=== PATIENT | female | born 1955 | race Caucasian/White ===

== ENCOUNTER 2016-11-22 18:38 | Emergency (ER) | payer BC ==
[2016-11-22 19:57] VITALS: BP 149/78
--- NOTE | 2016-11-22 20:42 | UC ---
Throat Pain/Nasal Tien HPI - HPI Summary HPI Summary: nasal drainage, sore throat no fever for 5 days..."gets this twice a year" - History of Current Complaint Chief Complaint: UCRespiratory Stated Complaint: SINUSES,NAUSEA Time Seen by Provider: 11/22/16 20:12 Hx Obtained From: Patient Hx Last Menstrual Period: 1978 ?: No Onset/Duration: Sudden Onset, Lasting Days - 5, Still Present Severity: Mild Pain Intensity: 3 Pain Scale Used: 0-10 Numeric Cough: None Associated Signs & Symptoms: Positive: Negative Related History: Seasonal Allergies - Allergies/Home Medications Allergies/Adverse Reactions: Allergies Allergy/AdvReac Type Severity Reaction Status Date / Time Amoxicillin [From Augmentin] Allergy Unknown pt does Verified 11/22/16 19:49 not know reaction Clavulanic Acid Allergy Unknown pt does Verified 11/22/16 19:49 [From Augmentin] not know reaction Prednisone AdvReac Insomnia Verified 11/22/16 19:49 PMH/Surg Hx/FS Hx/Imm Hx Previously Healthy: No Endocrine History Of: Denies: Diabetes, Thyroid Disease, Hyperthyroidism, Hypothyroidism, Dyslipidemia Cardiovascular History Of: Reports: Hypertension Denies: Cardiac Disorders, Pacemaker/ICD, Myocardial Infarction, Congestive Heart Failure, Atrial Fibrillation, Deep Vein Thrombosis, Bleeding Disorders Respiratory History Of: Denies: COPD, Asthma, Bronchitis, Pneumonia, Pulmonary Embolism GI/ History Of: Denies: Gastroesophageal Reflux, Ulcer, Gastrointestinal Bleed, Gall Bladder Disease, Kidney Stones, Diverticulitis, Renal Disease, Urosepsis Neurological History Of: Denies: TIA, CVA, Dementia, Seizures, Migraine Psychological History Of: Denies: Anxiety, Depression, Bipolar Disorder, Schizophrenia, Post Traumatic Stress Disorder Cancer History Of: Denies: Lung Cancer, Colorectal Cancer, Breast Cancer, Prostate Cancer Other History Of: Negative For: HIV, Hepatitis B, Hepatitis C, Anticoagulant Therapy - Surgical History Surgical History: Yes Surgery Procedure, Year, and Place: abd surgery over past 1-2 years. hysterectomy 1978. Chronic sciatica - Family History Known Family History: Positive: Cardiac Disease, Hypertension, Diabetes - Social History Occupation: Retired Lives: With Family Alcohol Use: None Substance Use Type: None Smoking Status (MU): Never Smoked Tobacco - Immunization History Most Recent Influenza Vaccination: NONE Most Recent Tetanus Shot: UTD Most Recent Pneumonia Vaccination: NONE Review of Systems Constitutional: Negative Skin: Negative Eyes: Negative ENT: Sore Throat, Nasal Discharge Respiratory: Negative Cardiovascular: Negative Gastrointestinal: Negative Genitourinary: Negative Motor: Negative Neurovascular: Negative Musculoskeletal: Negative Neurological: Negative Psychological: Negative All Other Systems Reviewed And Are Negative: Yes Physical Exam Triage Information Reviewed: Yes Appearance: Well-Appearing, No Pain Distress, Obese Vital Signs: Initial Vital Signs Temp 98 F 11/22/16 19:50 Pulse 96 11/22/16 19:50 Resp 18 11/22/16 19:50 BP 149/78 11/22/16 19:50 Pulse Ox 95 11/22/16 19:50 Vital Signs Reviewed: Yes Eye Exam: Normal Eyes: Positive: Conjunctiva Clear ENT Exam: Normal ENT: Positive: Normal ENT inspection, Hearing grossly normal, Pharynx normal, Nasal congestion, Nasal drainage, TMs normal. Negative: Tonsillar swelling, Tonsillar exudate, Trismus, Muffled/hoarse voice Dental Exam: Normal Neck exam: Normal Neck: Positive: Supple, Nontender, No Lymphadenopathy Respiratory Exam: Normal Respiratory: Positive: Chest non-tender, Lungs clear, Normal breath sounds, No respiratory distress, No accessory muscle use Cardiovascular Exam: Normal Cardiovascular: Positive: RRR, No Murmur, Pulses Normal, Brisk Capillary Refill Musculoskeletal Exam: Normal Musculoskeletal: Positive: Strength Intact, ROM Intact, No Edema Neurological Exam: Normal Neurological: Positive: Alert, Muscle Tone Normal Psychological Exam: Normal Skin Exam: Normal Throat Pain/Nasal Course/Dx - Course Assessment/Plan: Flonase, mucinex, increase fluids shold sx not resolve or worsen in the next 5 days may start antibiodic - Differential Dx/Diagnosis Differential Diagnosis/HQI/PQRI: Influenza, Laryngitis, Pharyngitis, Sinusitis, URI Provider Diagnoses: Rhinosinusitis Discharge - Discharge Plan Condition: Stable Disposition: HOME Prescriptions: Azithromycin TAB* [Zithromax TAB (Z-JAMARCUS) 250 mg #6 tabs] 2 tab PO .TODAY, THEN 1 DAILY #1 jamarcus Fluticasone NASAL SPRAY 50MCG* [Flonase NASAL SPRAY 50MCG*] 2 spray BOTH NARES DAILY #1 btl Patient Education Materials: Rhinosinusitis (ED), Chronic Hypertension (ED), DASH Eating Plan (ED) Referrals: SUHAIL Luciano [Primary Care Provider] - 7 Days
== END 2016-11-22 20:56 | disposition home or self-care (01) ==
LOC: UCCORT 18:38
DX: J32.9 Chronic sinusitis, unspecified (principal); Z88.1 Allergy status to other antibiotic agents; I10 Essential (primary) hypertension; E66.9 Obesity, unspecified
CPT/HCPCS: 99212; G0463

== ENCOUNTER 2017-01-15 17:01 | Emergency (ER) | payer BC ==
[2017-01-15 18:21] VITALS: BP 120/51
--- NOTE | 2017-01-15 19:00 | UC ---
Dizzy HPI HPI Summary: right ear feels plugged and spinning dizziness x 2 days. Hx vertigo in past. No fever. No COFFEY, chest pain, no focal deficit, no speech problem. States she had leftover meclizine 25mg which she took this am, and her symptoms improved. Pt is obese and has been trying to lose weight. - History Of Current Complaint Chief Complaint: UCDizziness Stated Complaint: VERTIGO Time Seen by Provider: 01/15/17 18:59 Hx Obtained From: Patient Hx Last Menstrual Period: n/a Onset/Duration: Gradual Onset, Lasting Days, Still Present Timing: Constant Severity Initially: Moderate Severity Currently: Moderate Pain Intensity: 0 Pain Scale Used: 0-10 Numeric Character: Room Spinning Aggravating Factor(s): Position Change Alleviating Factor(s): Nothing Associated Signs And Symptoms: Negative: Nausea, Vomiting, Diaphoresis, Tinnitus , Chest Pain, SOB, Palpitations, Unsteady Gait, Visual Changes Related History: Similar Episode/Dx as - vertigo - Risk Factors Cardiac Risk Factors: Negative CVA Risk Factor: Negative - Allergies/Home Medications Allergies/Adverse Reactions: Allergies Allergy/AdvReac Type Severity Reaction Status Date / Time Amoxicillin [From Augmentin] Allergy Unknown pt does Verified 11/22/16 19:49 not know reaction Clavulanic Acid Allergy Unknown pt does Verified 11/22/16 19:49 [From Augmentin] not know reaction Prednisone AdvReac Insomnia Verified 11/22/16 19:49 Home Medications: Home Medications Aleve Tab 1 tab PO DAILY PRN 01/15/17 [History Confirmed 01/15/17] Fluticasone NASAL SPRAY 50MCG* [Flonase NASAL SPRAY 50MCG*] 2 spray BOTH NARES DAILY PRN 01/15/17 [History Confirmed 01/15/17] Meclizine HCl [Meclizine 25] 25 mg PO DAILY PRN 01/15/17 [History Confirmed 12/27] PMH/Surg Hx/FS Hx/Imm Hx Previously Healthy: No - obese Other History Of: Negative For: HIV, Hepatitis B, Hepatitis C, Anticoagulant Therapy - Surgical History Surgical History: Yes Surgery Procedure, Year, and Place: abd surgery ~2013 umbilical. hysterectomy 1978 - Family History Known Family History: Positive: Cardiac Disease, Hypertension, Diabetes - Social History Alcohol Use: None Substance Use Type: None Smoking Status (MU): Never Smoked Tobacco - Immunization History Most Recent Influenza Vaccination: NONE Most Recent Tetanus Shot: UTD Most Recent Pneumonia Vaccination: NONE Review of Systems Constitutional: Negative Skin: Negative Eyes: Negative ENT: Negative Respiratory: Negative Cardiovascular: Negative Gastrointestinal: Negative Genitourinary: Negative Motor: Negative Neurovascular: Negative Musculoskeletal: Negative Neurological: Other - vertigo Psychological: Negative All Other Systems Reviewed And Are Negative: Yes Physical Exam Triage Information Reviewed: Yes Appearance: Well-Appearing, No Pain Distress, Obese Vital Signs: Initial Vital Signs Temp 98.4 F 01/15/17 18:06 Pulse 76 01/15/17 18:06 Resp 18 01/15/17 18:06 BP 120/51 01/15/17 18:06 Pulse Ox 99 01/15/17 18:06 Vital Signs Reviewed: Yes ENT: Positive: Hearing grossly normal, Pharynx normal, TMs normal. Negative: Muffled/hoarse voice Neck: Positive: Supple, Nontender, No Lymphadenopathy Respiratory: Positive: Lungs clear, Normal breath sounds, No respiratory distress Cardiovascular: Positive: RRR, No Murmur, Pulses Normal, Brisk Capillary Refill Abdomen Description: Positive: Nontender, Soft Bowel Sounds: Positive: Present Musculoskeletal: Positive: Strength Intact, ROM Intact Neurological: Positive: Alert, Muscle Tone Normal Psychological Exam: Normal Skin Exam: Normal Dizzy Course/Dx - Course Course Of Treatment: pt with hx vertigo, improved with meclizine, no red flags for CVA or CAD in her hx at this time, and no abnormality of the ear noted. Will continue meclizine and advise F/u prn. - Differential Dx/Diagnosis Differential Diagnosis/HQI/PQRI: Benign Paroxysmal Positional Vertigo, CVA, Labyrinthitis Provider Diagnoses: acute vertigo Discharge - Discharge Plan Condition: Stable Disposition: HOME Prescriptions: Meclizine HCl [Meclizine 25] 25 mg PO TID #30 tab Patient Education Materials: Vertigo (ED) Referrals: SUHAIL Luciano [Primary Care Provider] - Additional Instructions: You may take the meclizine 25mg tablets that you have up to three times a day for 10 days. You may also take this with mucinex as needed if the ear still feels plugged. Return to urgent care if any new or worsening symptoms.
== END 2017-01-15 19:24 | disposition home or self-care (01) ==
LOC: UCCORT 17:01
DX: R42 Dizziness and giddiness (principal); E66.9 Obesity, unspecified; Z88.1 Allergy status to other antibiotic agents; Z88.8 Allergy status to other drugs, medicaments and biological substances; Z90.710 Acquired absence of both cervix and uterus
CPT/HCPCS: 99212; G0463

== ENCOUNTER 2017-04-12 15:31 | Emergency (ER) | payer BC ==
[2017-04-12 15:47] VITALS: BP 152/77
--- NOTE | 2017-04-12 15:56 | UC ---
Skin Complaint HPI - HPI Summary HPI Summary: right lower leg redness x 2 days chair fell on her right lower leg + pain / swelling no fever, no chills - History of Current Complaint Chief Complaint: UCLowerExtremity Time Seen by Provider: 04/12/17 15:48 Stated Complaint: RIGHT LEG INJURY Hx Obtained From: Patient Hx Last Menstrual Period: n/a Onset/Duration: Sudden Onset, Lasting Days - 2, Still Present Timing: Constant Onset Severity: Moderate Current Severity: Moderate Location: Other - right lower leg Character: Swelling, Pain, Redness Aggravating: Touch Alleviating: Nothing Associated Signs & Symptoms: Negative: Nausea, Vomiting, Numbness, Thirst, Diaphoresis, Weakness, Fever, Chills, Cough - Allergy/Home Medications Allergies/Adverse Reactions: Allergies Allergy/AdvReac Type Severity Reaction Status Date / Time Amoxicillin [From Augmentin] Allergy Unknown pt does Verified 04/12/17 15:39 not know reaction Clavulanic Acid Allergy Unknown pt does Verified 04/12/17 15:39 [From Augmentin] not know reaction Prednisone AdvReac Insomnia Verified 04/12/17 15:39 Home Medications: Home Medications Naproxen Sodium [Naproxen Sodium 220 mg] 220 mg PO DAILY PRN 04/12/17 [History Confirmed 04/12/17] Review of Systems Constitutional: Negative Skin: Negative Eyes: Negative ENT: Negative All Other Systems Reviewed And Are Negative: Yes PMH/Surg Hx/FS Hx/Imm Hx Previously Healthy: Yes Cardiovascular History: Hypertension Other History Of: Negative For: HIV, Hepatitis B, Hepatitis C, Anticoagulant Therapy - Surgical History Surgical History: Yes Surgery Procedure, Year, and Place: abd surgery ~2012 umbilical. hysterectomy 1978 - Family History Known Family History: Positive: Cardiac Disease, Hypertension, Diabetes - Social History Alcohol Use: None Substance Use Type: None Smoking Status (MU): Never Smoked Tobacco - Immunization History Most Recent Influenza Vaccination: NONE Most Recent Tetanus Shot: UTD Most Recent Pneumonia Vaccination: NONE Physical Exam Triage Information Reviewed: Yes Appearance: Well-Appearing, No Pain Distress, Well-Nourished Vital Signs: Initial Vital Signs Temp 98.5 F 04/12/17 15:41 Pulse 101 04/12/17 15:41 Resp 18 04/12/17 15:41 BP 152/77 04/12/17 15:41 Pulse Ox 98 04/12/17 15:41 Vital Signs Reviewed: Yes Eyes: Positive: Conjunctiva Clear ENT: Positive: Normal ENT inspection, Hearing grossly normal, Pharynx normal Neck exam: Normal Neck: Positive: Supple, Nontender, No Lymphadenopathy Respiratory: Positive: Chest non-tender, Lungs clear, Normal breath sounds Cardiovascular: Positive: RRR, No Murmur, Pulses Normal Skin: Positive: Other - right lower leg: + erythema , swelling, tender, warm to touch, + 2 small abrasion Course/Dx - Diagnoses Provider Diagnoses: cellulitis right lower leg Discharge - Discharge Plan Condition: Stable Disposition: HOME Prescriptions: DOXYcycline CAP(*) [DOXYcycline 100MG CAP(*)] 100 mg PO BID #20 cap Patient Education Materials: Cellulitis (ED) Referrals: SUHAIL Luciano [Primary Care Provider] - 5 Days
== END 2017-04-12 16:02 | disposition home or self-care (01) ==
LOC: UCCORT 15:31
DX: L03.115 Cellulitis of right lower limb (principal); I10 Essential (primary) hypertension; Z90.710 Acquired absence of both cervix and uterus; Z88.1 Allergy status to other antibiotic agents; Z88.8 Allergy status to other drugs, medicaments and biological substances
CPT/HCPCS: 99212; G0463